=== PATIENT | male | born 1995 | race African-American/Black ===

== ENCOUNTER 2025-01-11 22:32 | Emergency (ER) | payer OTHER ==
[~2025-01-11] VITALS: Ht 162.6 cm; Wt 79.5 kg
[2025-01-12] MEDS ORDERED: [UNRECOGNIZED DRUG - CODE] NARES (01:06)
[2025-01-12 01:10] VITALS: BP 119/81; TEMP 97.8; O2SAT 97
[2025-01-12] MEDS: SALINE NOSE DROPS 30 ML ONE (01:21)
== END 2025-01-12 01:22 | disposition home or self-care (01) ==
LOC: M ED 22:32
DX: R04.0 Epistaxis (principal)